=== PATIENT | female | born 1930 | race Two or more races ===

== ENCOUNTER 2019-01-26 02:24 | Emergency (ER) | payer OTHER, MEDICAID ==
[~2019-01-26] VITALS: Ht 160 cm; Wt 46.9 kg
--- NOTE | 2019-01-26 02:25 | NUR ---
to bed 1 bib paramedics c/p possible syncope, bradycardia, hypotension per ems report. per pt family members report to ems pt was here from out of town to attend a and the pt was hypertensive earlier during the day. pt took extra pill of amlodopine as per ems report. pt was given 0.5 mg of atropine by ems captain waiter/waitress due to symptomaic bradycardia hr-38, and ns 200ml's given captain waiter/waitress. received pt aaox4 no acute distress noted, resp even and unlabored. pupils perrla, pt able to move all extremities well with bilateral equal sourcing associate. place pt on cardiac monitoring, continuous pox. pending er md chandler.
[2019-01-26] MEDS ORDERED: IV NS 0.9% 500 ML BAG IV ONE (02:30)
[2019-01-26 02:46] LABS: BASOPHILS % (AUTO) 0.2 % (0.0-2.0); EOSINOPHILS % (AUTO) 2.5 % (0.0-6.0); HEMATOCRIT 38 % (33-45); HEMOGLOBIN 13.1 g/dL (11.5-14.8); LYMPHOCYTES # (AUTO) 2.1 /CMM (0.8-4.8); LYMPHOCYTES % (AUTO) 53.6 % (20.0-44.0); MEAN CORPUSCULAR HGB CONC 35 g/dl (31.0-36.0); MEAN CORPUSCULAR VOLUME 90 fL (82-100); MONOCYTES # (AUTO) 0.4 /CMM (0.1-1.30); MONOCYTES % (AUTO) 10.1 % (2.0-12.0); NEUTROPHILS # (AUTO) 1.3 /CMM (1.8-8.9); NEUTROPHILS % (AUTO) 33.6 % (43.0-81.0); PLATELET COUNT (AUTO) 206 /CMM (150-450); RED BLOOD CELL COUNT(AUTO) 4.19 MIL/uL (4.0-5.2)
[2019-01-26 02:56] LABS: CARBON DIOXIDE 22 mmol/L (21-32); CHLORIDE 90 mmol/L (98-107); CREATININE 0.7 mg/dL (0.6-1.3); GLUCOSE 130 mg/dL (74-106); POTASSIUM 3.4 mmol/L (3.5-5.1); SODIUM SERUM 124 mmol/L (136-145); UREA NITROGEN, BLOOD 12 mg/dL (7-18)
[2019-01-26 03:01] LABS: ALANINE AMINOTRANSFERASE 24 U/L (12-78); ALBUMIN 3.5 g/dL (3.4-5.0); ALKALINE PHOSPHATASE 92 U/L (46-116); ASPARTATE AMINOTRANSFERASE 21 U/L (15-37); BILIRUBIN,DIRECT 0.2 mg/dL (0.0-0.2); BILIRUBIN,TOTAL 0.7 mg/dL (0.2-1.0); TOTAL PROTEIN, SERUM 6.2 g/dL (6.4-8.2)
--- NOTE | 2019-01-26 03:03 | NUR ---
pt back from radiology. pending ct head result.
--- NOTE | 2019-01-26 03:08 | NUR ---
pt family member at bedside.
--- NOTE | 2019-01-26 04:30 | NUR ---
angeline elizalde spoke to [facility] regarding pt.
--- NOTE | 2019-01-26 04:30 | NUR ---
Eric romo in ED - 01/26/19 at 0604 by MONET er spoke to er md regarding pt admission.
--- NOTE | 2019-01-26 04:45 | NUR ---
pt asleep, no acute distress noted, resp even and unlabored. call light within reach. pt family remains at bedside.
--- NOTE | 2019-01-26 06:25 | NUR ---
pt asleep, no acute distress noted, resp even and unlabored. call light within reach. pt family remains at bedside.
--- NOTE | 2019-01-26 07:07 | NUR ---
Pt accepted to [facility] ER by Dr Payne. # for report [phone]. ALS ambulance eta [phone]
--- NOTE | 2019-01-26 07:08 | NUR ---
report given to am shift ender gonzalez.
--- NOTE | 2019-01-26 07:20 | NUR ---
report called to Pernell Prather. awaiting transport.
[2019-01-26 08:27] VITALS: BP 137/72
--- NOTE | 2019-01-26 08:32 | NUR ---
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 going to [facility].
== END 2019-01-26 08:30 | disposition short-term general hospital (02) ==
LOC: ER 02:24
DX: R55 Syncope and collapse (principal); E87.1 Hypo-osmolality and hyponatremia; I10 Essential (primary) hypertension; E03.9 Hypothyroidism, unspecified; Z88.8 Allergy status to other drugs, medicaments and biological substances
CPT/HCPCS: 36415; 70450; 71045; 80048; 80076; 82962; 84484; 85025; 85730; 86850; 87081; 93005; 99285; J7040